=== PATIENT | female | born 1980 | race African-American/Black ===

== ENCOUNTER 2018-07-03 08:36 | Emergency (ER) | payer OTHER ==
[~2018-07-03] VITALS: Ht 160 cm; Wt 65.8 kg
[2018-07-03 09:56] VITALS: BP 145/97
== END 2018-07-03 09:57 | disposition home or self-care (01) ==
LOC: ER 08:36
DX: S40.022A Contusion of left upper arm, initial encounter (principal); F17.210 Nicotine dependence, cigarettes, uncomplicated; W25.XXXA Contact with sharp glass, initial encounter; Y93.89 Activity, other specified; Y92.89 Other specified places as the place of occurrence of the external cause; Y99.8 Other external cause status